=== PATIENT | male | born 1960 ===

== ENCOUNTER 2024-12-01 11:12 | Outpatient (REF) | payer OTHER, SELFPAY ==
--- NOTE | 2024-12-01 10:45 | SKI_PTH ---
PATIENT: Hernando He LOC: [facility] U#:[id number] AGE/SX: 64/M ROOM: RE12/01/[address]: Ave Unger DPM : 1960 BED: DIS: 12/01/2024 SPEC #: [id number] RECD: 12/01/24 13:14 STATUS: HIEU QUINN #: [id number] ASPEN: 12/01/24 10:[address]: Ave Unger DEPT: Surgical Specimen RECD BY: Carol Braxton Tissues: 1 - SKIN BIOPSY(SHAVE/PUNCH) Procedures: SKIN LEVEL 4 Comments: [id number]
== END 2024-12-01 11:13 | disposition home or self-care (01) ==
LOC: LBN 11:12
PROVIDERS: PCP Specialist/Technologist Athletic Trainer; Visit Provider Podiatrist
DX: L97.529 Non-pressure chronic ulcer of other part of left foot with unspecified severity (principal)
CPT/HCPCS: 87077; 87070; 87075; 87186; 87205; 88305

== ENCOUNTER 2024-12-01 12:09 | Outpatient (CLI) | payer OTHER, SELFPAY ==
--- NOTE | 2024-12-01 11:54 | DI.RAD_ITS ---
Exam(s) XR FOOT LT COMPLETE EXAM: XR FOOT LT COMPLETE CLINICAL HISTORY: S91.302A, Z89.432Open wound acquired absence LT FT, Gas? Osteomyelitis?. TECHNIQUE: 2D digital imaging was performed of the left foot. Three images were obtained. AP, oblique and lateral views were obtained. COMPARISON: No exams were available for comparison FINDINGS: BONES: No acute fracture is present. No bony destructive lesion is seen. There is been resection of the toes. There is also been resection of the heads of the 2nd through 5th metatarsals. There has been resection of the 1st metatarsal bone. There is a plantar calcaneal spur. JOINTS: No dislocation present. SOFT TISSUE: There is no soft tissue gas. Atherosclerotic calcification is present. IMPRESSION: 1. Postsurgical changes with amputations as described above. 2. No radiographic evidence to suggest osteomyelitis. DATA REPOSITORY: RADIATION DOSE DELIVERED:
--- NOTE | 2024-12-01 11:54 | DI.RAD_ITS ---
Exam(s) XR FOOT RT COMPLETE EXAM: XR FOOT RT COMPLETE CLINICAL HISTORY: M79.671,R23.4,L84 Pain RT foot,Changes in skin,Fissure,comparison/ baseline. TECHNIQUE: 2D digital imaging was performed of the right foot. Three images were obtained. AP, oblique and lateral views were obtained. COMPARISON: No exams were available for comparison FINDINGS: BONES: No acute fracture is present. No bony destructive lesion is seen. There is a small enthesophyte at the posterior calcaneus. There is a small plantar calcaneal spur. There is an old healed fracture of the proximal phalanx of the great toe. JOINTS: No dislocation present. Degenerative changes are present particularly at the 1st MTP joint. SOFT TISSUE: Atherosclerotic calcification is present. IMPRESSION: Chronic changes of the foot including degenerative changes and calcaneal spurs. DATA REPOSITORY: RADIATION DOSE DELIVERED:
== END 2024-12-01 12:29 ==
LOC: DI 12:11
PROVIDERS: PCP Specialist/Technologist Athletic Trainer; Visit Provider Podiatrist
DX: S91.302A Unspecified open wound, left foot, initial encounter (principal); Z89.432 Acquired absence of left foot; L84 Corns and callosities; M79.671 Pain in right foot; R23.4 Changes in skin texture; X58.XXXA Exposure to other specified factors, initial encounter
CPT/HCPCS: 73630

== ENCOUNTER 2024-12-01 12:18 | Outpatient (CLI) | payer OTHER, SELFPAY ==
[2024-12-01 12:12] LABS: ESR 50 mm/hr (0-20)
[2024-12-01 12:13] LABS: Abs Immature Grans 0.05 10^3/uL (0.0-0.06); HCT 40.2 % (40.0-50.0); HGB 13.7 g/dL (13.5-17.5); Immature Grans % 0.7 %; MCH 32.2 pg (27.0-33.0); MCHC 34.1 % (32.0-36.0); MCV 95 fL (80-95); MPV 9.6 fL (8.0-11.0); Platelet Count 163 10^3/uL (130-400); RBC 4.25 10^6/uL (4.36-5.78); RDW 12.7 % (11.8-14.1); RDW-SD 43.8 fL; WBC 7.08 10^3/uL (4.4-10.8)
[2024-12-01 12:43] LABS: C-Reactive Protein 1.14 mg/dL (<or=0.5)
== END 2024-12-01 12:19 | disposition home or self-care (01) ==
LOC: LBO 12:18
PROVIDERS: PCP Specialist/Technologist Athletic Trainer; Visit Provider Podiatrist
DX: L03.90 Cellulitis, unspecified (principal); Z89.432 Acquired absence of left foot; L97.522 Non-pressure chronic ulcer of other part of left foot with fat layer exposed; I73.9 Peripheral vascular disease, unspecified; G62.9 Polyneuropathy, unspecified; S91.302A Unspecified open wound, left foot, initial encounter; E11.42 Type 2 diabetes mellitus with diabetic polyneuropathy
CPT/HCPCS: 36415; 85652; 85025; 86140